=== PATIENT | female | born 1940 | race Caucasian/White ===

== ENCOUNTER → 2020-04-23 15:45 | Outpatient (CLI) | payer MEDICARE ==
[2015-02-14 15:27] VITALS: BMI 26.0
[~2020-04-23 15:45] MED LIST: BAYER CHEWABLE81 MG PO; BYSTOLIC5 MG PO; CATAPRES0.2 MG PO; LOPID600 MG PO; NORVASC10 MG PO; PERCOCET 10/3251 TA1 PO; SOMA350 MG PO; SYNTHROID50 MCG PO; VALIUM5 MG PO; ZETIA10 MG PO
[2020-04-23 16:18] LABS: LDL-HDL RATIO 3.4 ratio (1.5-3.5)
== END | disposition home or self-care (01) ==
LOC: D.LABREF 15:45
PROVIDERS: ATTEND Legal Medicine
DX: E78.2 Mixed hyperlipidemia (principal); E11.9 Type 2 diabetes mellitus without complications

== ENCOUNTER 2020-06-27 08:56 | Inpatient (IN) | payer MEDICARE ==
[~2020-06-27] VITALS: Ht 170.2 cm; Wt 77.6 kg
[2020-06-27] MEDS ORDERED: METHOCARBAMOL500 MG PO (09:11)
[2020-06-27] MEDS ORDERED: LISINOPRIL10 MG PO (09:12)
[2020-06-27] MEDS ORDERED: FENTANYL PAIN PUMP (09:12)
[2020-06-27] MEDS ORDERED: NORMODYNE / TR100 MG PO (09:13)
[2020-06-27 09:55] LABS: BASOPHILS 0.1 % (0-2); EOSINOPHILS 0.7 % (0-7); HEMATOCRIT 35.6 % (36.0-48.0); HEMOGLOBIN 11.6 g/dL (12-16); IMMATURE GRANULOCYTES 0.2 % (0-5); LYMPHOCYTES 5.1 % (15-50); MCH 29.8 pg (26.0-34.0); MCHC 32.6 g/dL (31.0-37.0); MCV 91.5 fL (80.0-100.0); MEAN PLATELET VOLUME 9.5 fL (7.4-10.4); MONOCYTES 4.9 % (2-11); RBC 3.89 10x6/uL (4.00-5.40); RDW 12.9 % (11.5-14.5); WBC 16.5 10x3/uL (4.8-10.8)
[2020-06-27 09:58] LABS: PLATELET COUNT 216 10x3/uL (130-400)
[2020-06-27 10:06] LABS: CALC OSMOLALITY 278 mosm/kg (275-300); CALCIUM 10.6 mg/dL (8.5-10.1); CARBON DIOXIDE 28.4 mmol/L (21.0-32.0); CHLORIDE - SERUM 105 mmol/L (98-107); CREATININE - SERUM 1.4 mg/dL (0.6-1.3); GLUCOSE 104 mg/dL (74-106); POTASSIUM - SERUM 5.4 mmol/L (3.5-5.1); SODIUM 138 mmol/L (136-145); UREA NITROGEN 22 mg/dL (7-18); eGFR NON AFRICAN AMERICAN 38 mL/min (90-120)
[2020-06-27 10:14] LABS: ALBUMIN 3.8 g/dL (3.4-5.0); ALKALINE PHOSPHATASE 144 U/L (30-120); ALT (SGPT) 43 U/L (10-68); AMYLASE - SERUM 97 U/L (25-115); BILIRUBIN - TOTAL 0.32 mg/dL (0.2-1.3); LIPASE 137 U/L (73-393); PROTEIN - SERUM 7.1 g/dL (6.4-8.2)
[2020-06-27 10:16] LABS: TROPONIN-I < 0.017 ng/mL (0.000-0.060)
[2020-06-27 11:15] VITALS: BP 156/47
[2020-06-27 11:23] LABS: BILIRUBIN NEGATIVE (NEGATIVE); GLUCOSE NEGATIVE (NEGATIVE); KETONE NEGATIVE (NEGATIVE); NITRITE NEGATIVE (NEGATIVE); UROBILINOGEN NORMAL (NORMAL)
--- NOTE | 2020-06-27 13:40 | NUR ---
CALLED REPORT TO LIANNA AT THIS TIME.
[2020-06-27 15:10] VITALS: BP 110/48; BMI 26.8
--- NOTE | 2020-06-27 16:29 | NUR ---
RWECEIVED CALL FROM PT SON KENDALL WHO IS A CVICU NURSE IN ANOTHER STATE, ASKED FOR PT TEST RESULTS AND VS, WENT OVER CXR AND LABS WITH HIM AFTER RECEIVING CODE FOR PT ACCT. PT SON ASKED TO BE CALLED IF PT GETS WORSE. NO OTHER NEDS AT THIS TIMECONTINUE WITH PLAN OF CARE
[2020-06-27 16:34] LABS: CKMB 1.6 U/L (0.0-3.6); CREATINE KINASE 118 UL (21-215)
[2020-06-27 16:39] LABS: TROPONIN-I < 0.017 ng/mL (0.000-0.060)
[2020-06-27 20:00] VITALS: BP 103/37
[2020-06-27] MEDS ORDERED: GABAPENTIN100 MG PO (21:20)
[2020-06-27 22:11] LABS: CREATINE KINASE 141 UL (21-215)
[2020-06-27 22:13] LABS: TROPONIN-I 0.016 ng/mL (0.000-0.060)
[2020-06-28] VITALS: BP 104/38
--- NOTE | 2020-06-28 03:04 | NUR ---
I have reviewed this patient and I concur with the Shift Assessment completed by the Licensed Practical Nurse today this shift.
[2020-06-28 04:56] VITALS: BP 112/38
[2020-06-28 05:57] LABS: BASOPHILS 0.1 % (0-2); EOSINOPHILS 0.8 % (0-7); HEMATOCRIT 31.2 % (36.0-48.0); HEMOGLOBIN 9.7 g/dL (12-16); IMMATURE GRANULOCYTES 0.2 % (0-5); LYMPHOCYTES 20.4 % (15-50); MCH 28.9 pg (26.0-34.0); MCHC 31.1 g/dL (31.0-37.0); MCV 92.9 fL (80.0-100.0); MEAN PLATELET VOLUME 10.1 fL (7.4-10.4); MONOCYTES 8.1 % (2-11); NEUTROPHILS 70.4 % (40-80); PLATELET COUNT 216 10x3/uL (130-400); RBC 3.36 10x6/uL (4.00-5.40); RDW 13.3 % (11.5-14.5)
[2020-06-28 06:15] LABS: ALBUMIN 3.1 g/dL (3.4-5.0); ALKALINE PHOSPHATASE 105 U/L (30-120); BILIRUBIN - TOTAL 0.34 mg/dL (0.2-1.3); CALC OSMOLALITY 276 mosm/kg (275-300); CALCIUM 8.4 mg/dL (8.5-10.1); CARBON DIOXIDE 26.2 mmol/L (21.0-32.0); CHLORIDE - SERUM 103 mmol/L (98-107); CREATINE KINASE 151 UL (21-215); CREATININE - SERUM 1.7 mg/dL (0.6-1.3); GLUCOSE 89 mg/dL (74-106); PROTEIN - SERUM 6.3 g/dL (6.4-8.2); SODIUM 137 mmol/L (136-145); TROPONIN-I < 0.017 ng/mL (0.000-0.060); UREA NITROGEN 24 mg/dL (7-18); eGFR NON AFRICAN AMERICAN 31 mL/min (90-120)
[2020-06-28 06:18] LABS: WBC 11.2 10x3/uL (4.8-10.8)
[2020-06-28 06:20] LABS: ALT (SGPT) 31 U/L (10-68); POTASSIUM - SERUM 4.5 mmol/L (3.5-5.1)
--- NOTE | 2020-06-28 07:38 | NUR ---
ASSISTED PT TO RESTROOM, NO S/SX OF DISTRESS, IV IN LEFT AC SL, PATENT, PT ON ROOM AIR, NO NEEDS VOICED AT THIS TIME, CONTINUE WITH PLAN OF CARE
[2020-06-28 09:12] VITALS: BP 146/50
[2020-06-28 13:21] VITALS: BP 172/54
[2020-06-28 13:44] VITALS: Ht 170.2 cm; Wt 77.6 kg
[2020-06-28 16:00] VITALS: BP 136/87
--- NOTE | 2020-06-28 18:21 | NUR ---
I have reviewed this patient and I concur with the Shift Assessment completed by the Licensed Practical Nurse today this shift.
[2020-06-28 20:00] VITALS: BP 168/61
--- NOTE | 2020-06-28 20:00 | NUR ---
PATIENT RESTING IN BED WATCHING TV. NO S/S OF ACUTE DISTRESS. NO C/O AT THIS TIME. PATIENT HAS A LEFT AC, SALINE LOC. IV IS PATENT WITHOUT REDNESS, SWELLING, OR TENDERNESS. PATIENT IS UP ADLIB TO THE BATHROOM. CALL LIGHT WITHIN REACH. WILL CONTINUE TO MONITOR.
[2020-06-29] VITALS: BP 155/60
--- NOTE | 2020-06-29 02:04 | NUR ---
I have reviewed this patient and I concur with the Shift Assessment completed by the Licensed Practical Nurse today this shift.
[2020-06-29 04:00] VITALS: BP 153/65
[2020-06-29 05:59] LABS: BASOPHILS 0.1 % (0-2); EOSINOPHILS 2.2 % (0-7); HEMATOCRIT 32.1 % (36.0-48.0); HEMOGLOBIN 10.2 g/dL (12-16); IMMATURE GRANULOCYTES 0.1 % (0-5); LYMPHOCYTES 27.8 % (15-50); MCH 29.1 pg (26.0-34.0); MCHC 31.8 g/dL (31.0-37.0); MCV 91.5 fL (80.0-100.0); MEAN PLATELET VOLUME 9.8 fL (7.4-10.4); MONOCYTES 9.5 % (2-11); NEUTROPHILS 60.3 % (40-80); PLATELET COUNT 219 10x3/uL (130-400); RBC 3.51 10x6/uL (4.00-5.40); RDW 13.1 % (11.5-14.5)
[2020-06-29 06:23] LABS: ANION GAP 16.6 mmol/L (8-16); CALCIUM 8.6 mg/dL (8.5-10.1); CARBON DIOXIDE 26.1 mmol/L (21.0-32.0); CREATININE - SERUM 1.3 mg/dL (0.6-1.3); POTASSIUM - SERUM 4.7 mmol/L (3.5-5.1)
[2020-06-29 06:47] LABS: WBC 7.4 10x3/uL (4.8-10.8)
--- NOTE | 2020-06-29 07:15 | NUR ---
REC'D IN BED AWAKE AND ALERT. RESP EVEN AND UNLABORED WITH NO DISTRESS NOTED. CAND VOICE NEEDS AND WANTS. NO C/O NOTED. ASSESSMENT COMPLETED. C/L IN REACH AT BEDSIDE.
[2020-06-29 08:55] VITALS: BP 167/55
[2020-06-29] MEDS ORDERED: OMNICEF300 MG PO (10:05)
--- NOTE | 2020-06-29 12:51 | MORECARE ---
CASE MANAGEMENT DISCHARGE SUMMARY PATIENT: SULEMA ZHENG UNIT: [id number] ADM DATE: 06/27/20 AGE: 80 : 41 SEX: F ROOM/BED: D.2226 AUTHOR: VANESSA DIAZ PHYSICIAN: REFERRING PHYSICIAN: DEENA HOFFMANN MD DATE OF SERVICE: 06/29/20 Discharge Plan Patient Name: SULEMA ZHENG Facility: [facility]:[place] : 1940 Planned Disposition: Anticipated Discharge Date: Discharge Date: Expected LOS: Initial Reviewer: [email or web address] Initial Review Date: 06/29/2020 Generated: 06/29/20 1:51 pm Comments DCP- Discharge Planning Updated by [email or web address]: Ally Villatoro on 06/29/20 11:[address] Patient Name: SULEMA ZHENG Admission Status: ER Accout number: [id number] Admission Date: 06-27-2020 : 1940 Admission Diagnosis: Attending: DEENA HOFFMANN Current LOS: 2 Anticipated DC Date: Planned Disposition: Primary Insurance: MEDICARE A & B Discharge Planning Comments: CM met with patient at bedside after explaining CM role and obtaining verbal consent. CM discussed availability / needs of home health, REHAB and medical equipment. DENIES ANY DISCHARGE NEEDS. CM TO FOLLOW AND ASSIST NEEDED. Legal Writing Professor: Ally Villatoro DCPIA - Discharge Planning Initial Assessment Updated by [email or web address]: Ally Vilaltoro on 06/29/20 12:47 pm * Is the patient Alert and Oriented? Yes * PCP NIK * Pharmacy [facility] * Preadmission Environment Home Alone * ADLs Independent * Other Equipment CANE * Community resources currently utilized None * Additional services required to return to the preadmission environment? No * Can the patient safely return to the preadmission environment? Yes * Has this patient been hospitalized within the prior 30 days at any hospital? No Patient Name: SULEMA ZHENG Page [id number] at 1251 All edits/amendments must be made on the electronic document DICTATION DATE: 06/29/20 1251 HEAD OF ENGLISH: EVELIN 06/29/20 1251 RPT#: [id number] DC DATE: STATUS: ADM IN [facility] [address] [place] [address] END OF REPORT
--- NOTE | 2020-06-29 18:03 | NUR ---
DC HOME AT THIS TIME WITH ALL PERSONAL BELONGING. STABLE CONDITION UPON DEPARTURE. C/L IN REACH AT BEDSIDE.
--- NOTE | 2020-06-30 13:02 | MORECARE ---
CASE MANAGEMENT DISCHARGE SUMMARY PATIENT: SULEMA ZHENG UNIT: [id number] ADM DATE: 06/27/20 AGE: 80 : 41 SEX: F ROOM/BED: D.2226 AUTHOR: VANESSA DIAZ PHYSICIAN: REFERRING PHYSICIAN: DEENA HOFFMANN MD DATE OF SERVICE: 06/30/20 Discharge Plan Patient Name: SULEMA ZHENG Facility: [facility]:[place] : 1940 Planned Disposition: Anticipated Discharge Date: Discharge Date: 06/29/2020 Expected LOS: Initial Reviewer: [email or web address] Initial Review Date: 06/29/2020 Generated: 06/30/20 2:01 pm Comments DCP- Discharge Planning Updated by [email or web address]: Ally Villatoro on 06/29/20 11:[address] Patient Name: SULEMA ZHENG Admission Status: ER Accout number: [id number] Admission Date: 06-27-2020 : 1940 Admission Diagnosis: Attending: DEENA HOFFMANN Current LOS: 2 Anticipated DC Date: Planned Disposition: Primary Insurance: MEDICARE A & B Discharge Planning Comments: CM met with patient at bedside after explaining CM role and obtaining verbal consent. CM discussed availability / needs of home health, REHAB and medical equipment. DENIES ANY DISCHARGE NEEDS. CM TO FOLLOW AND ASSIST NEEDED. Gas Engine Operator Compressors: Ally Villatoro DCPIA - Discharge Planning Initial Assessment Updated by [email or web address]: Ally Villatoro on 06/29/20 12:47 pm * Is the patient Alert and Oriented? Yes * PCP NIK * Pharmacy [facility] * Preadmission Environment Home Alone * ADLs Independent * Other Equipment CANE * Community resources currently utilized None * Additional services required to return to the preadmission environment? No * Can the patient safely return to the preadmission environment? Yes * Has this patient been hospitalized within the prior 30 days at any hospital? No Last DP export: 06/29/20 11:51 am Patient Name: SULEMA ZHENG Page [id number] at 1302 All edits/amendments must be made on the electronic document DICTATION DATE: 06/30/20 1301 CERTIFIED MEDICAL CODING SPECIALIST: EVELIN 06/30/20 1301 RPT#: [id number] DC DATE:06/29/20 STATUS: DIS IN [facility] [address] [place] [address] END OF REPORT
== END 2020-06-29 18:08 | disposition home or self-care (01) | DRG 195 ==
LOC: D.ER 08:56 → D.MS 12:49
PROVIDERS: Emergency Medicine; Family Medicine; ADMIT Legal Medicine; ATTEND Legal Medicine
DX: J18.1 Lobar pneumonia, unspecified organism (principal); D64.9 Anemia, unspecified; D72.829 Elevated white blood cell count, unspecified; I10 Essential (primary) hypertension; G89.29 Other chronic pain; R53.81 Other malaise

== ENCOUNTER → 2021-04-19 09:32 | Outpatient (CLI) | payer MEDICARE ==
[2020-06-28 13:44] VITALS: BMI 26.8
[~2021-04-19 09:32] MED LIST changes: +FENTANYL PAIN PUMP; +GABAPENTIN100 MG PO; +LISINOPRIL10 MG PO; +METHOCARBAMOL500 MG PO; +NORMODYNE / TR100 MG PO; +OMNICEF300 MG PO
== END | disposition home or self-care (01) ==
LOC: D.RAD 09:32
PROVIDERS: ATTEND Emergency Medicine
DX: M25.571 Pain in right ankle and joints of right foot (principal)